=== PATIENT | female | born 1975 | race Caucasian/White ===

== ENCOUNTER 2017-05-14 17:30 | Outpatient (RCR) | payer OTHER, SELFPAY | END 2017-05-16 23:59 | LOC: NS 17:30 | PROVIDERS: Family Provider Internal Medicine; PCP Internal Medicine; Visit Provider Internal Medicine | DX: E66.9 Obesity, unspecified (principal); Z68.37 Body mass index [BMI] 37.0-37.9, adult; Z71.3 Dietary counseling and surveillance | CPT/HCPCS: 97803 ==

== ENCOUNTER 2017-05-28 16:59 | Outpatient (RCR) | payer OTHER, SELFPAY ==
[2017-03-28 16:08] VITALS: BMI 26.2
== END 2017-06-13 23:59 ==
LOC: NS 16:59
PROVIDERS: Family Provider Internal Medicine; PCP Internal Medicine; Visit Provider Internal Medicine
DX: E66.9 Obesity, unspecified (principal); Z68.37 Body mass index [BMI] 37.0-37.9, adult; Z71.3 Dietary counseling and surveillance
CPT/HCPCS: 97803

== ENCOUNTER 2017-07-09 17:00 | Outpatient (RCR) | payer OTHER, SELFPAY | END 2017-07-09 17:01 | LOC: NS 17:00 | PROVIDERS: Family Provider Internal Medicine; PCP Internal Medicine; Visit Provider Internal Medicine | DX: E66.9 Obesity, unspecified (principal); Z68.37 Body mass index [BMI] 37.0-37.9, adult; Z71.3 Dietary counseling and surveillance | CPT/HCPCS: 97803 ==

== ENCOUNTER → 2018-09-23 16:35 | Outpatient (CLI) | payer OTHER, SELFPAY ==
[2018-05-21 08:55] VITALS: BMI 36.7
[2018-09-27 11:49] LABS: HPV Reflexed? NOT INDICATED
== END ==
PROVIDERS: PCP Internal Medicine; Visit Provider Obstetrics & Gynecology
DX: Z12.4 Encounter for screening for malignant neoplasm of cervix (principal)
CPT/HCPCS: 87624; 88175; G0145

== ENCOUNTER → 2020-12-01 | Outpatient (CLI) | payer BC, SELFPAY ==
[2020-12-07 17:03] LABS: HPV Reflexed? NOT INDICATED
== END | disposition home or self-care (01) ==
LOC: WOBLAB 16:43 → LABSPEC 16:43
PROVIDERS: PCP Internal Medicine; Visit Provider Obstetrics & Gynecology
DX: Z12.4 Encounter for screening for malignant neoplasm of cervix (principal)
CPT/HCPCS: 88175; G0145

== ENCOUNTER → 2022-02-28 | Outpatient (CLI) | payer BC, SELFPAY ==
--- NOTE | 2022-02-28 17:00 | BI_ITS ---
MAMMOGRAPHY - BILATERAL SCREENING REASON FOR EXAM: Female, 46 years old. Routine annual screening examination. PERTINENT HISTORY: Grandmothers with breast cancer. TECHNIQUE: Digital bilateral breast deann (3D mammographic acquisition) in the CC and MLO projections. 2-D mediolateral oblique (MLO) and craniocaudad (CC) views of both breasts were obtained. CAD: Full Field Digital Mammography with Computer Added Detection was performed. COMPARISON: Comparison is made with prior examination dated 02/15/2021. FINDINGS: Breast Composition: The breasts are heterogeneously dense, which may obscure small masses. There are no dominant masses or suspicious calcifications. No other significant abnormalities are identified. There has been no significant change since the prior study. BI/SCRN MAMM (CAD)W/DEANN BILAT IMPRESSION: Stable bilateral screening mammogram. Yearly follow-up mammogram recommended. (A) ASSESSMENT CATEGORY: BIRADS Category 1: Negative. A letter regarding these results will be sent to the patient by the facility within 30 days. Approximately 10% of breast cancers are not detected by mammography. A normal mammogram should not delay biopsy of a clinically suspicious abnormality. [id number] Electronically Signed: Aditya Clinton MD at 8:36 EST ,
== END | disposition home or self-care (01) ==
LOC: OPBI 03-01 06:56
PROVIDERS: PCP Internal Medicine; Visit Provider Student in an Organized Health Care Education/Training Program
DX: Z12.31 Encounter for screening mammogram for malignant neoplasm of breast (principal); Z80.3 Family history of malignant neoplasm of breast
CPT/HCPCS: 77063; 77067

== ENCOUNTER 2022-07-26 08:49 | Day surgery (SDC) | payer BC, SELFPAY ==
[2022-07-26 09:17] VITALS: BP 126/84; PULSE 95; RESP 16; TEMP 36.6; O2SAT 100; BMI 36.2
[2022-07-26] MEDS: Lactated Ringers 1,000 ML 15 ML IV (09:26)
--- NOTE | 2022-07-26 09:42 | HP.PCM_ITS ---
[facility] - General General Date of Admission: 07/26/22 HPI Narrative NYDIA ALLISON, is a 46 F who presents for screening colonoscopy. Patient never had previous colonoscopy. Patient denies any family history of colon cancer. Patient has bowel moods daily denies any blood. Patient denies any chronic abdominal pain/nausea/vomiting. Patient states after she had COVID she did have reflux for about 3 months but changed her diet and that has resolved. [facility] Medical History (Updated 07/24/22 @ 11:20 by Heavenly Cueva) Acute maxillary sinusitis, unspecified Anxiety Asthma Asthma Depression with anxiety Easy bruising Gastric reflux History of echocardiogram Hypertension Hypertension Left elbow pain Left hand pain Left hand pain Non-smoker Obesity Seasonal allergies Ulnar neuropathy at elbow Wears contact lenses Wears glasses Home Medications atenolol 25 mg tablet 25 mg PO DAILY #90 tabs 08/09/21 [Rx Last Taken 07/26/22] losartan 100 mg tablet 100 mg PO QDAY #90 tabs 08/09/21 [Rx Last Taken 07/26/22] rmmgqekfypjd-Hg-pzap-minerals 18 mg-0.4 mg tablet 1 tab PO DAILY 04/18/22 [History Last Taken Unknown] norethindrone (contraceptive) 0.35 mg tablet (Tiffanie) 0.35 mg PO DAILY 06/14/22 [History Last Taken Unknown] citalopram 20 mg tablet See Rx Instructions .Route .COMPLEX #90 tabs 06/23/22 [Rx Last Taken 07/26/22] Allergy/AdvReac Type Severity Reaction Status Date / Time moxifloxacin [From Avelox] Allergy Intermediate Shortness Verified 07/24/22 11:06 of breath azithromycin [From Zithromax] Allergy Shortness Verified 07/24/22 11:06 of breath clarithromycin [From Biaxin] Allergy Shortness Verified 07/24/22 11:06 of breath erythromycin base Allergy Shortness Verified 07/24/22 11:06 [Erythromycin Base] of breath Family History (Updated 06/14/22 @ 08:12 by Kayla Urban) Mother Hypertension Menier's Father Hypertension Hyperlipidemia Asthma Myocardial infarction Colon polyp Grandfather Diabetes Myocardial infarction, Onset Age: 79 Grandmother Breast cancer Diabetes Grandfather Myocardial infarction of [place] in early 50s Grandmother Breast cancer Diabetes Surgical History none Social History Smoking Status: Never smoker alcohol intake: never substance use type: does not use what type of physical activity do you participate in: aerobics and weight training frequency: 3-4 times per week Past Medical/Surgical History Planned Operation Planned Operative Procedure/s: COLONOSCOPY Previous Hospitalizations/Surgeries HX Hospitalizations: No Any Problems With Anesthesia: No You/Your Family Experience Fever (Hyperthermia) With Anes: No Cholinesterase deficiency: No Cardiovascular Hx Heart Attack: No Hx Hypertension: Yes (TREATED WITH MEDS) Respiratory Hx Sleep Apnea: No Hx Respiratory Tract Infection/Cold (presently): No Do You Snore Loudly (louder than talking or can be heard): No Do You Often Feel Tired/ Fatigued/ Sleepy Dring Daytime?: No Has Anyone Observed You Stop Breathing During Sleep?: No Result (for STOP score): Negative Smoking Status: Never smoker Gastrointestinal Hx Gastroesophageal Reflux: Yes Controlled With Meds: Yes Special diet followed at home: No Neurological Does patient have nerve stimulator: No Reproduction : No Genitourinary Hx Renal Disease: No Endocrine Hx Diabetes: No Psycho/Social Hx Anxiety: Yes Hx Depression: Yes Miscellaneous Recent Exposure to Contagious Disease: No Allergies moxifloxacin [From Avelox] Allergy (Intermediate, Verified 07/24/22 11:06) Shortness of breath azithromycin [From Zithromax] Allergy (Verified 07/24/22 11:06) Shortness of breath clarithromycin [From Biaxin] Allergy (Verified 07/24/22 11:06) Shortness of breath erythromycin base [Erythromycin Base] Allergy (Verified 07/24/22 11:06) Shortness of breath Discharge Is Pt Admitted From a [facility], or a Care Home: No Who Could Help: LIZBETH After D/C, Where Do you Plan to Go: Return Home Vital Signs Vital Signs Vital Signs: 07/26/22 09:17 07/26/22 09:17 Temperature 97.9 F Temperature Source Temporal Pulse Rate 95 Respiratory Rate 16 Respiratory Pattern Normal Blood Pressure 126/84 H Blood Pressure Mean 98 Blood Pressure Source Monitor Blood Pressure Position Semi-Fowlers Blood Pressure Location Left Arm Pulse Ox 100 Oxygen Delivery Method Room Air Weight Weight: 191 lb 12.835 oz Body Mass Index (BMI) 36.2 Physical Exam Const alert, oriented x3 and no apparent distress HEENT normocephalic and head/scalp atraumatic Resp normal respiratory effort Cardio regular rate GI soft to palpation and non-tender; Negative for non-distended Palpation: Negative for guarding Extremity no clubbing, cyanosis or edema Neuro CN's II-XII intact bilaterally Psych mental status grossly normal Assessment & Plan Assessment/Plan (1) Encounter for screening for malignant neoplasm of colon: Surgery Risks - Colonoscopy Risks Include but are not Limited To: Risks include but are not limited to: Bleeding, perforation requiring further surgery, inability to complete colonoscopy requiring barium enema.
--- NOTE | 2022-07-26 10:00 | COLBX_PTH ---
PATIENT: NYDIA ALLISON LOC: EN U#:[id number] AGE/SX: 46/F ROOM: RE07/26/[address]: Dr. Meaghan Mcconnell MD : 1975 BED: DIS: 07/26/2022 SPEC #: [id number] RECD: 07/26/22 11:41 STATUS: NÉSTOR REDaljit #: [id number] DONNY: 07/26/22 10:[address]: Meaghan Mcconnell DEPT: SURGICAL PATHOLOGY RECD BY: Chava Cheung ENTERED: 07/26/22 12:51 SP TYPE: COLON BX OTHR DR: Dr. Maegan Hardin MD Tissues: Sigmoid colon biopsy Procedures: Surgery Specimen Level IV HEADER OPERATION: Colonoscopy ? open access (MAC) PRE-OP DIAGNOSIS: Screening TISSUE SUBMITTED: Rectosigmoid polyp MICROSCOPIC DIAGNOSIS Rectosigmoid polyp, biopsy: Tubular adenoma. AM:malcom 07/27/2022 MICROSCOPIC DESCRIPTION Slides are reviewed. GROSS DESCRIPTION Received in fixative is one container labeled with the patient's name and designated rectosigmoid polyp. The specimen consists of one irregular fragment of light conte soft tissue that measures 0.6 x 0.6 x 0.2 cm. The specimen is totally submitted in one cassette. / AM:malcom 07/26/2022 TC:5 CPT: 23463
[2022-07-26 10:38] VITALS: BP 111/57; BP 126/84; PULSE 72; RESP 18; TEMP 36.7; O2SAT 97
--- NOTE | 2022-07-26 10:39 | OP.COLON_ITS ---
Patient Name: Shari Valdes Procedure Date: 07/26/2022 10:05 AM Date of : 1975 Age: 46 Procedure: Colonoscopy Indications: Screening for colorectal malignant neoplasm Providers: Meaghan Mcconnell MD Referring MD: Meaghan Mcconnell MD Medicines: Monitored Anesthesia Care Patient Profile: This is a 46 year old female. Last Colonoscopy: none. The patient's first colonoscopy is today. Complications: No immediate complications. Procedure: Pre-Anesthesia Assessment: - Prior to the procedure, a History and Physical was performed, and patient medications and allergies were reviewed. The patient's tolerance of previous anesthesia was also reviewed. The risks and benefits of the procedure and the sedation options and risks were discussed with the patient. All questions were answered, and informed consent was obtained. Prior Anticoagulants: The patient has taken no previous anticoagulant or antiplatelet agents. ASA Grade Assessment: Per anesthesia. After reviewing the risks and benefits, the patient was deemed in satisfactory condition to undergo the procedure. After I obtained informed consent, the scope was passed under direct vision. Throughout the procedure, the patient's blood pressure, pulse, and oxygen saturations were monitored continuously. The colonoscope was introduced through the anus and advanced to the cecum, identified by the appendiceal orifice, ileocecal valve and palpation. The colonoscopy was performed without difficulty. The patient tolerated the procedure well. The quality of the bowel preparation was good. Scope In: 10:11:12 AM Scope Withdrawal Time 0 hours 9 minutes 20 seconds Scope Out: 10:29:35 AM Total Procedure Duration Time 0 hours 18 minutes 23 seconds Findings: The perianal and digital rectal examinations were normal. A 5 mm polyp was found in the recto-sigmoid colon. The polyp was semi-pedunculated. The polyp was removed with a hot snare. Resection and retrieval were complete. The exam was otherwise without abnormality on direct and retroflexion views. Impression: - One 5 mm polyp at the recto-sigmoid colon, removed with a hot snare. Resected and retrieved. - The examination was otherwise normal on direct and retroflexion views. Recommendation: - Discharge patient to home. - Resume previous diet. - Continue present medications. - Await pathology results. - Repeat colonoscopy in 5 years for surveillance based on pathology results. Procedure Code(s): --- Professional --- 14138, PT, Colonoscopy, flexible; with removal of tumor(s), polyp(s), or other lesion(s) by snare technique Diagnosis Code(s): --- Professional --- Z12.11, Encounter for screening for malignant neoplasm of colon D12.7, Benign neoplasm of rectosigmoid junction CPT copyright 2017 [employer]. All rights reserved. The codes documented in this report are preliminary and upon dedicated driver review may be revised to meet current compliance requirements. MD Meaghan Payan MD 07/26/2022 10:39:00 AM This report has been signed electronically. Number of Addenda: 0 Note Initiated On: 07/26/2022 10:05 AM
--- NOTE | 2022-07-26 10:40 | OP.CCLET_ITS ---
07/26/2022 Maegan Hardin MD [address] [place] [address] Re : Colonoscopy procedure for Shari Valdes Dear Dr. Hardin This procedure was performed on Tuesday, July 26, 2022. My impressions and recommendations are as follows: Impressions : - One 5 mm polyp at the recto-sigmoid colon, removed with a hot snare. Resected and retrieved. - The examination was otherwise normal on direct and retroflexion views. Recommendations : - Discharge patient to home. - Resume previous diet. - Continue present medications. - Await pathology results. - Repeat colonoscopy in 5 years for surveillance based on pathology results. My findings are described in the full procedure note, which is enclosed. If I can be of further assistance, please feel free to contact me at Doctor phone number(s): , Work: . Sincerely, MD Meaghan Payan MD 07/26/2022 10:39:00 AM This report has been signed electronically.
[2022-07-26 10:42] VITALS: BP 103/58; BP 126/84; PULSE 85; RESP 18; O2SAT 97
[2022-07-26 10:47] VITALS: BP 113/68; BP 126/84; PULSE 68; RESP 16; O2SAT 100
[2022-07-26 10:52] VITALS: BP 110/71; BP 126/84; PULSE 66; RESP 18; O2SAT 100
[2022-07-26 10:54] VITALS: BP 112/67; BP 126/84; PULSE 79; RESP 16; TEMP 36.8; O2SAT 100
== END 2022-07-26 11:31 | disposition home or self-care (01) ==
LOC: EN 08:51 → AC 08:52
PROVIDERS: PCP Internal Medicine; Referring Provider Surgery; Visit Provider Surgery
PROC: 0DJD8ZZ Inspection of Lower Intestinal Tract, Via Natural or Artificial Opening Endoscopic (ICD-10-PCS; CPT 45378; principal; 2022-07-26 09:55)
DX: Z12.11 Encounter for screening for malignant neoplasm of colon (principal); I10 Essential (primary) hypertension; J45.909 Unspecified asthma, uncomplicated; E66.9 Obesity, unspecified; Z79.899 Other long term (current) drug therapy; K21.9 Gastro-esophageal reflux disease without esophagitis; D12.7 Benign neoplasm of rectosigmoid junction
CPT/HCPCS: 45385; 88305; J7120; J2405

== ENCOUNTER → 2022-09-06 | Outpatient (CLI) | payer BC, SELFPAY ==
[2022-09-06 15:14] LABS: Absolute Lymphocyte Count 2.89 X10^3/uL (0.83-4.51); Absolute Neutrophil Count 8.5 X10^3/uL (2.0-7.7); Basophil# 0.05 X10^3/uL; Basophil% 0.4 % (0-1); Eosinophil# 0.36 X10^3/uL; Eosinophils% 2.9 % (0-5); Hematocrit 44.7 % (37-47); Hemoglobin 14.2 g/dL (12.0-15.0); Lymphocyte # 2.89 X10^3/ul (0.83-4.51); Lymphocyte % 23.5 % (19-41); Mean Corp Hgb Conc 31.8 g/dL (32-36); Mean Corpuscular Hgb 28.5 pg (27.0-32.0); Mean Corpuscular Volume 89.6 fL (81-99); Mean Platelet Vol. 10.3 fl (6.2-12.0); Monocyte% 4.1 % (0-10); NRBC Flagged by Analyzer 0 % (0-5); Neutrophil # 8.45 X10^3/uL (2.7-7.7); Neutrophil % 68.8 % (47-70); Platelet Count 329 K/mm3 (150-450); RBC Distribution Width SD 42.5 fl (35.1-43.9); Red Blood Count 4.99 M/mm3 (4.2-5.4); White Blood Count 12.3 K/mm3 (4.4-11.0)
[2022-09-06 15:38] LABS: ALB/GLOB Ratio 1.1 RATIO (0.9-2.4); AST(SGOT) 12 U/L (15-37); Alanine Aminotransfer ALT/SGPT 23 U/L (13-56); Albumin, Serum 3.8 g/dL (3.2-5.0); Alkaline Phosphatase 87 U/L (45-117); Anion Gap 6 (5-15); BUN 18 mg/dL (7-18); BUN/Creat Ratio 19.7 RATIO (10-20); Calcium,Total 8.5 mg/dL (8.5-10.1); Chloride 107 mmol/L (98-107); Cholesterol 166 mg/dL (200); Creatinine, Serum 0.91 mg/dL (0.55-1.02); EST Glomerular Filtration Rate 70 mL/min (>60); Est Glom Filt Rate - Afr Amer 85 mL/min (>60); Globulin 3.4 g/dL (2.2-4.2); Glucose 89 mg/dL (74-106); High Density Lipoprotein 48 mg/dL; Potassium 4.4 mmol/L (3.5-5.1); Protein, Total 7.2 g/dL (6.4-8.2); Sodium Level 138 mmol/L (136-145); Triglycerides 225 mg/dL; Very Low Density Lipoprotein 45 mg/dL (5-40)
== END | disposition home or self-care (01) ==
LOC: BIMLAB 14:00
PROVIDERS: PCP Internal Medicine; Referring Provider Internal Medicine; Visit Provider Internal Medicine
DX: Z00.00 Encounter for general adult medical examination without abnormal findings (principal)
CPT/HCPCS: 36415; 80053; 80061; 85025

== ENCOUNTER → 2023-01-22 | Outpatient (CLI) | payer BC, SELFPAY ==
[2023-01-25 14:09] LABS: HPV APTIMA, High Risk Negative (Negative)
== END | disposition home or self-care (01) ==
PROVIDERS: PCP Internal Medicine; Referring Provider Nurse Practitioner Women's Health; Visit Provider Nurse Practitioner Women's Health
DX: Z12.4 Encounter for screening for malignant neoplasm of cervix (principal)
CPT/HCPCS: 87624; 88175; G0145

== ENCOUNTER → 2023-02-06 | Outpatient (CLI) | payer BC, SELFPAY ==
--- NOTE | 2023-02-06 08:35 | US_ITS ---
STUDY: ULTRASOUND OF THE FEMALE PELVIS - LIMITED REASON FOR EXAM: Female, 47 years old irregular menses TECHNIQUE: Transabdominal and Transvaginal TECHNICAL QUALITY: Adequate. COMPARISON: None. FINDINGS: The uterus is anteverted and is in a midline position. The uterus measures 7.5 x 4.3 x 2.7 cm. Normal uterine cervix. The endometrium measures 2.3 mm in thickness, and is hyperechoic. There is no demonstrated endometrial mass. There is no demonstrated myometrial mass. There is fluid within the endocervical canal and a suggestion of a 1 cm polyp. The right ovary measures 2.1 x 1.0 x 0.8 cm. There is no right ovarian cyst or ovarian mass. There is no visualized right adnexal mass or complex lesion. There is normal arterial and normal venous vascularity. The left ovary measures 1.5 x 1.3 x 0.7 cm. There is no left ovarian cyst or ovarian mass. There is no visualized left adnexal mass or complex lesion. There is normal arterial and normal venous vascularity. Bladder distends normally There is no fluid in the cul-de-sac. US/Pelvic (Non ) IMPRESSION: Some fluid is noted within the endocervical canal with a likely polyp present measuring 1 cm. Fluid is likely hemorrhage. Normal endometrial thickness Sonographically normal ovaries Electronically Signed: Markie Hernandez MD at 14:53 EDT ,
[2023-02-06 09:48] LABS: Estradiol 56.6 pg/mL; Follicle Stimulating Hormone 23.6 mIU/mL; Thyroid Stim Hormone (TSH) 1.13 uIU/mL (0.358-3.74)
== END | disposition home or self-care (01) ==
PROVIDERS: PCP Internal Medicine; Referring Provider Nurse Practitioner Women's Health; Visit Provider Nurse Practitioner Women's Health
DX: N92.6 Irregular menstruation, unspecified (principal); R23.2 Flushing
CPT/HCPCS: 36415; 76830; 76856; 82670; 83001; 84443

== ENCOUNTER → 2023-03-01 | Outpatient (CLI) | payer BC, SELFPAY ==
--- NOTE | 2023-03-01 16:26 | BI_ITS ---
MAMMOGRAPHY - BILATERAL SCREENING REASON FOR EXAM: Female, 47 years old. Routine annual screening examination. PERTINENT HISTORY: Grandmothers with breast cancer. TECHNIQUE: Digital bilateral breast deann (3D mammographic acquisition) in the CC and MLO projections. 2-D mediolateral oblique (MLO) and craniocaudad (CC) views of both breasts were obtained. CAD: Full Field Digital Mammography with Computer Added Detection was performed. COMPARISON: Comparison is made with prior study March 30, 2022. FINDINGS: Breast Composition: The breasts are heterogeneously dense, which may obscure small masses. There are no dominant masses or suspicious calcifications. No other significant abnormalities are identified. There has been no significant change since the prior study. BI/SCRN MAMM (CAD)W/DEANN BILAT IMPRESSION: Stable bilateral screening mammogram. Yearly follow-up mammogram recommended. (A) ASSESSMENT CATEGORY: BIRADS Category 1: Negative. A letter regarding these results will be sent to the patient by the facility within 30 days. Approximately 10% of breast cancers are not detected by mammography. A normal mammogram should not delay biopsy of a clinically suspicious abnormality. [id number] Electronically Signed: Aditya Clinton MD at 8:43 EST ,
== END | disposition home or self-care (01) ==
LOC: OPBI 16:25
PROVIDERS: PCP Internal Medicine; Referring Provider Nurse Practitioner Women's Health; Visit Provider Nurse Practitioner Women's Health
DX: Z12.31 Encounter for screening mammogram for malignant neoplasm of breast (principal)
CPT/HCPCS: 77063; 77067

== ENCOUNTER 2023-05-08 12:08 | Day surgery (SDC) | payer BC, SELFPAY ==
[2023-04-24 13:16] LABS: Hematocrit 45.8 % (37-47); Hemoglobin 14.8 g/dL (12.0-15.0); Mean Corp Hgb Conc 32.3 g/dL (32-36); Mean Corpuscular Hgb 28.5 pg (27.0-32.0); Mean Corpuscular Volume 88.2 fL (81-99); Mean Platelet Vol. 9.5 fl (6.2-12.0); Platelet Count 367 K/mm3 (150-450); RBC Distribution Width CV 12.4 % (11.6-14.6); RBC Distribution Width SD 40.4 fl (35.1-43.9); Red Blood Count 5.19 M/mm3 (4.2-5.4); White Blood Count 11.9 K/mm3 (4.4-11.0)
[2023-05-08] VITALS (18 sets, daily range): BP systolic 88–152; BP diastolic 55–104; PULSE 59–72; RESP 12–18; TEMP 36.2–36.4; O2SAT 92–100; BMI 37.5
--- NOTE | 2023-05-08 12:26 | PCM.HP.BLA ---
History and Physical Date of Admission: 05/08/23 MR#: [id number] Acct: [id number] Name: NYDIA ALLISON Rep #: [id number] : 1975 Provider: Dr. Joan Gibbons DO Age/Sex: 47/F Location: [facility] [place] Status: Signed Intake Vital Signs 01/22/2310:15 03/20/2315:01 03/20/2315:01 Height 5 ft 1 in 5 ft 1 in 5 ft 1 in Weight: 205 lb 8 oz BMI 38.8 BP 141/84 H Intake Visit Reasons: surgical consultation Database Reporting Consultant Required: No Is patient in pain?: No Allergies moxifloxacin [From Avelox] Allergy (Intermediate, Verified 03/20/23 15:00) Shortness of breathazithromycin [From Zithromax] Allergy (Verified 03/20/23 15:00) Shortness of breathclarithromycin [From Biaxin] Allergy (Verified 03/20/23 15:00) Shortness of breatherythromycin base [Erythromycin Base] Allergy (Verified 03/20/23 15:00) Shortness of breath Medications gvehzftcqtir-Mb-qbrp-minerals 18 mg-0.4 mg tablet 1 tab PO DAILY 04/18/22 [History Confirmed 03/20/23] atenolol 25 mg tablet 25 mg PO DAILY #90 tabs 09/07/22 [Rx Confirmed 03/20/23] citalopram 20 mg tablet See Rx Instructions .Route .COMPLEX #90 tabs 09/07/22 [Rx Confirmed 03/20/23] losartan 100 mg tablet 100 mg PO QDAY #90 tabs 09/07/22 [Rx Confirmed 03/20/23] norethindrone 1 mg-ethinyl estradiol 10 mcg (24)-iron 10 mcg(2) tablet (Lo Loestrin Fe) 1 tab PO QDAY #140 tabs 02/06/23 [Rx Confirmed 03/20/23] Post menopausal: No Patient : No : No PFSH Medical History Abnormal CBC Acute maxillary sinusitis, unspecified Anxiety Asthma Asthma Depression with anxiety Easy bruising Gastric reflux History of echocardiogram Hypertension Hypertension Irregular menstrual bleeding Left elbow pain Left hand pain Non-smoker Obesity Seasonal allergies Ulnar neuropathy at elbow Wears contact lenses Wears glasses Surgical History none Family History Mother Hypertension Menier's Father Hypertension Hyperlipidemia Asthma Myocardial infarction Colon polypGrandfather Diabetes Myocardial infarction, Onset Age: 79Grandmother Breast cancer DiabetesGrandfather Myocardial infarction of [place] in early 50sGrandmother Breast cancer Diabetes Social History household members: family housing: house number of children: 0 current occupational status: employed current occupation: [employer] Smoking Status: Never smoker alcohol intake: never substance use type: does not use what type of physical activity do you participate in: aerobics and weight training frequency: 3-4 times per week seatbelt use: always do you feel safe at home: Yes additional social history: lives with sister Single [facility] surgical consultation Details: NYDIA ALLISON is a 47 year old who presents for pre-op evaluation. She was struggling with heavy irregular bleeding q 2 weeks and was seen initially by the [facility]. Nadine Masters's ordered an ultrasound and this showed a 1 cm polyp in the cervix. She is here today to discuss removal. History 0 Elective abortions Hx Para Spontaneous abortions Hx # Term Pregnancies Ectopic pregnancies Hx # Pregnancies Multiple births # of living children ROS Const ROS Unobtainable: All systems reviewed & are unremarkable except as noted in H Resp Resp: Reports system reviewed and no additional complaints, except as documented; Denies cough GI GI: Reports as per HPI Psych Psych: Reports system reviewed and no additional complaints, except as documented Exam Const General: cooperative, healthy appearing, comfortable and no acute distress Resp Effort & Inspection: normal respiratory effort Skin General: no rashes or lesions noted Psych Appearance: grossly normal Speech and Movement: speech and movement normal Coding Level of Care Code Off vis,est,level 3 Diagnoses Polyp of cervix N84.1 Assessment and Plan Assessment and Plan (1) Polyp of cervix: Status: Acute Plan: After discussing the patient's diagnosis and treatment plan options, patient wishes to proceed with surgical management. I have discussed with the patient the risks, benefits, and alternatives of the procedure which include but are not limited to risks of anesthesia, bleeding, infection, possible damage to bowel, bladder, or surrounding vasculature which could lead to additional surgery to evaluate any complications. Patient agrees to procedure and wishes to proceed. ACOG/uptodate references given for additional information regarding procedure. plan for hysteroscopy D&C polypectomy and insertion of mirena IUD.
--- OUTSIDE RECORDS SUMMARY | 2023-05-08 12:34 | XMS RPT_ITS | CCD ---
Author Name Unknown Address [address] [place] [address] Organization [facility] Care Team Providers Care Monitoring Analyst Name Role Phone Lashawn DUTTON, Kalpesh Marques Primary Care Provider Allergies Allergy Classification Reported Allergen(s) Allergy Type Date of Onset Reaction(s) Facility (4 sources) Azithromycin; Translations: [AZITHROMYCIN] Drug Allergy 04-20-2013 Itching [facility] Work Phone: (4 sources) Clarithromycin; Translations: [CLARITHROMYCIN] Drug Allergy 04-20-2013 Itching [facility] Work Phone: (4 sources) Erythromycin; Translations: [ERYTHROMYCIN] Drug Allergy 04-20-2013 Itching [facility] Work Phone: Medications Current Medications Medication Drug Class(es) Dates Sig (Normalized) Sig (Original) amoxicillin 875 mg oral tablet (2 sources) Penicillin-class Antibacterial Start: 09-29-2021 End: 10-06-2021 take 1 tablet by mouth twice daily amoxicillin (AMOXIL) 875 mg tablet Take 1 tablet by mouth twice daily for 7 days. 14 tablet 0 09/29/2021 10/06/2021 Active Completed/Discontinued Medications Medication Drug Class(es) Dates Sig (Normalized) Sig (Original) albuterol 0.83 mg/ml inhalation solution (3 sources) beta2-Adrenergic Agonist Start: 07-20-2013 take 2.5 mg by inhalation every four hours as needed albuterol 2.5 mg /3 mL (0.083 %) nebulizer solution Use 3 mL via nebulizer every 4 hours as needed for Wheezing/Shortnes s of Breath. Use over 5-15minutes. 1 Package 0 07/20/2013 Active Problems Problem Classification Problem Date Documented Da te Episodic/Chronic Asthma (1 source) Mild intermittent asthma; Translations: [Mild intermittent asthma with (acute) exacerbation] Chronic Immunizations and screening for infectious disease (1 source) Contact with or exposure to other viral diseases; Translations: [Close exposure to COVID-19 virus] Episodic Other lower respiratory disease (1 source) Cough; Translations: [Cough] Episodic Otitis media and related conditions (1 source) Acute suppurative otitis media without spontaneous rupture of ear drum; Translations: [Acute suppurative otitis media without spontaneous rupture of ear drum, right ear] Episodic Results Test Name Value Interpretation Reference Range Facil ity Vital Signs Date Time Vital Sign Value Performing Clinician Tanya marcano 10-05-2022 19:37-0400 Body temperature 98.4 [degF] Josafat Davis [employer].FACETOR Work Phone: [facility] 10-05-2022 19:37-0400 Body weight 87.45 kg Josafat Davis [employer].FACETOR Work Phone: [facility] 10-05-2022 19:37-0400 Diastolic blood pressure 84 mm[Hg] Josafat Davis [employer]ER.FACETOR Work Phone: [facility] 10-05-2022 19:37-0400 Heart rate 79 /min Josafat Davis [employer].FACETOR Work Phone: [facility] 10-05-2022 19:37-0400 Respiratory rate 18 /min Josafat Davis [employer].FACETOR Work Phone: [facility] 10-05-2022 19:37-0400 SaO2% (BldA) [Mass fraction] 98 % Josafat Davis [employer]ER.FACETOR Work Phone: [facility] 10-05-2022 19:37-0400 Systolic blood pressure 136 mm[Hg] Josafat Davis [employer]INEER.FACETOR Work Phone: [facility] 09-29-2021 18:24-0400 Body temperature 99.3 [degF] Lesli Hicks APRN.FACETOR Work Phone: [facility] 09-29-2021 18:24-0400 Body weight 97.07 kg Lesli Hicks APRN.FACETOR Work Phone: [facility] 09-29-2021 18:24-0400 Diastolic blood pressure 80 mm[Hg] Lesli Hicks APRN.FACETOR Work Phone: [facility] 09-29-2021 18:24-0400 Heart rate 102 /min Lesli Hicks APRN.FACETOR Work Phone: [facility] 09-29-2021 18:24-0400 Respiratory rate 20 /min Lesli Hicks APRN.FACETOR Work Phone: [facility] 09-29-2021 18:24-0400 SaO2% (BldA) [Mass fraction] 98 % Lesli Hicks APRN.FACETOR Work Phone: [facility] 09-29-2021 18:24-0400 Systolic blood pressure 150 mm[Hg] Lesli Hicks APRN.FACETOR Work Phone: [facility] Encounters Encounter Date Encounter Type Care Provider Facility Start: 10-05-2022 End: 10-05-2022 ambulatory KALPESH ROLAND Facility:[facility] Start: 10-05-2022 End: 10-05-2022 Office outpatient visit 25 minutes Josafat Davis APRN.FACETOR Work Phone: [facility] Plan of Treatment Date Care Activity Detail Author Start: 04-16-2022 DEPRESSION ASSESSMENT DEPRESSION ASSESSMENT [facility] Start: 09-29-2021 End: 10-13-2021 Influenza virus A and B RNA and SARS-CoV-2 (COVID-19) N gene panel - Respiratory specimen by DAWSON with probe detection COVID WITH FLUA+B, ROUTINE Microbiology Routine Close exposure to COVID-19 virus Expected: 09/29/2021, Expires: 10/13/2021 [facility] Work Phone: Payers Date Payer Category Payer Unknown [employer] PPO [id number] 2020-Present [phone] [address] [place] [address] PPO [id number] 2020 Unknown [employer]EL [employer] PPO [id number] 2020-Present [phone] [address] [place] [address] PPO [id number] 2020 Unknown [id number] Social History Date Type Detail Facility Start: 04-20-2013 End: 10-05-2022 Tobacco smoking status NHIS Never smoked tobacco [facility] Work Phone: Start: 04-20-2013 End: 10-05-2022 Tobacco use and exposure Smokeless tobacco non-user [facility] Work Phone: Start: 09-29-2021 End: 10-05-2022 Alcohol intake Lifetime non-drinker (finding) [facility] Start: 09-29-2021 History SDOH Alcohol Frequency 1 [facility] Start: 1975 Sex Assigned At Not on file C [facility] Start: 09-19-2021 End: 09-29-2021 Exposure to SARS-CoV-2 (event) Not sure [facility] Work Phone: Progress note 10-05-2022 Note Date & Type Note Facility 10-05-2022 Note HNO ID: [id number] Author: Josafat Davis APRN.FACETOR Service: ? Author Type: Nurse Practitioner Type: Progress Notes Filed: 10/05/2022 7:55 PM Note Text: Subjective HPI Nontoxic-appearing female presents urgent care chief complaint cough chest congestion. Duration of symptoms 3 weeks. Associated symptoms listed above. Patient states initially she did have sore throat headache runny nose. Those symptoms have since improved. Sick contacts was on a cruise around individuals similar signs symptoms. Presents today for persistent cough. Has been using rescue inhaler more frequently. This has been helping helping. Has been using cough suppressants this has not been helpful. Denies any pain currently. History of asthma. Denies chance of . Denies any fever productive cough chest pain shortness of breath pleuritic pain hemoptysis nausea vomiting abdominal pain or change in bowel or bladder habits. Past medical history prescription medication use allergies reviewed. .Patient presents with: Cough: Cough and congestion x 3 weeks PAST MEDICAL HISTORY Diagnosis Date Asthma Environmental allergies HTN (hypertension) History reviewed. No pertinent surgical history. ALLERGIES Biaxin [Clarithromycin], Erythromycin, and Zithromax [Azithromycin] MEDICATIONS atenolol (TENORMIN) 25 mg tablet Take 25 mg by mouth once daily. losartan potassium (LOSARTAN ORAL) Take by mouth. Norethindrone Acet-Ethinyl Est 1-20 mg-mcg per tablet Take 1 tablet by mouth once daily. amLODIPine (NORVASC) 5 mg tablet Take 5 mg by mouth once daily. citalopram hydrobromide (CELEXA) 10 mg tablet Take 10 mg by mouth once daily. albuterol 2.5 mg /3 mL (0.083 %) nebulizer solution Use 3 mL via nebulizer every 4 hours as needed for Wheezing/Shortness of Breath. Use over 5-15minutes. fluticasone (FLONASE) 50 mcg/actuation nasal spray Use 2 Sprays in each nostril once daily. Rinse mouth after use. (Patient not taking: Reported on 10/05/2022) hydrochlorothiazide (HYDRODIURIL, ESIDRIX) 25 mg tablet Take 25 mg by mouth once daily. (Patient not taking: Reported on 06/04/2021 ) promethazine (PHENERGAN) 25 mg tablet Take 1 tablet by mouth every 6 hours as needed for Nausea/Vomiting. codeine-guaiFENesin (ROBITUSSIN AC) 10-100 mg/5 mL syrup Take 5-10 mL by mouth four times daily as needed for Cough. May cause drowsiness. cloNIDine HCl (CATAPRES) 0.2 mg tablet Take 0.2 mg by mouth twice daily. codeine-guaiFENesin (ROBITUSSIN AC) 10-100 mg/5 mL syrup Take 5-10 mL by mouth four times daily as needed for Cough. May cause drowsiness. benzonatate (TESSALON PERLES) 100 mg capsule Take 1 capsule by mouth three times daily as needed for Cough. MONTELUKAST SODIUM (SINGULAIR ORAL) Take by mouth. (Patient not taking: Reported on 06/04/2021 ) FLUTICASONE PROPIONATE (FLONASE NASAL) Use in the nose. History reviewed. No pertinent family history. Social History Tobacco Use Smoking status: Never Smokeless tobacco: Never Substance Use Topics Alcohol use: Never Drug use: Never BP 136/84 Pulse 79 Temp 36.9 ?C (98.4 ?F) (Tympanic) Resp 18 Wt 87.5 kg (192 lb 12.8 oz) LMP 02/18/2013 SpO2 98% Review of Systems Constitutional: Negative for chills, fever and malaise/fatigue. HENT: Negative for congestion, ear discharge, ear pain, sinus pain and sore throat. Eyes: Negative for blurred vision, pain, discharge and redness. Respiratory: Positive for cough and wheezing. Negative for hemoptysis, sputum production, shortness of breath and stridor. Cardiovascular: Negative for chest pain. Gastrointestinal: Negative for abdominal pain, diarrhea, nausea and vomiting. Musculoskeletal: Negative for myalgias. Skin: Negative for itching and rash. Neurological: Negative for dizziness and headaches. Objective Physical Exam Constitutional: General: She is not in acute distress. Appearance: She is not diaphoretic. HENT: Head: Normocephalic. Nose: Nose normal. Mouth/Throat: Mouth: Mucous membranes are moist. Pharynx: Oropharynx is clear. No oropharyngeal exudate or posterior oropharyngeal erythema. Eyes: Conjunctiva/sclera: Conjunctivae normal. Pupils: Pupils are equal, round, and reactive to light. Cardiovascular: Rate and Rhythm: Normal rate and regular rhythm. Heart sounds: Normal heart sounds. Pulmonary: Effort: Pulmonary effort is normal. No tachypnea, accessory muscle usage or respiratory distress. Breath sounds: No stridor. Wheezing present. No rhonchi or rales. Abdominal: Palpations: Abdomen is soft. Tenderness: There is no abdominal tenderness. There is no guarding or rebound. Musculoskeletal: Cervical back: Normal range of motion and neck supple. No rigidity or tenderness. Lymphadenopathy: Cervical: No cervical adenopathy. Skin: General: Skin is warm and dry. Neurological: Mental Status: She is alert and oriented to person, place, and time. ASSESSMENT/ (more content not included)... [facility] History of Present illness Narrative 10-05-2022 Josafat MAGGIE Davis.FACETOR - 10/05/2022 7:42 PM EDT Note Date & Type Note Facility 10-05-2022 History of Presen t illness Narrative Subjective HPI Nontoxic-appearing female presents urgent care chief complaint cough chest congestion. Duration of symptoms 3 weeks. Associated symptoms listed above. Patient states initially she did have sore throat headache runny nose. Those symptoms have since improved. Sick contacts was on a cruise around individuals similar signs symptoms. Presents today for persistent cough. Has been using rescue inhaler more frequently. This has been helping helping. Has been using cough suppressants this has not been helpful. Denies any pain currently. History of asthma. Denies chance of . Denies any fever productive cough chest pain shortness of breath pleuritic pain hemoptysis nausea vomiting abdominal pain or change in bowel or bladder habits. Past medical history prescription medication use allergies reviewed. .Patient presents with: Cough: Cough and congestion x 3 weeks PAST MEDICAL HISTORY Diagnosis Date Asthma Environmental allergies HTN (hypertension) History reviewed. No pertinent surgical history. ALLERGIES Biaxin [Clarithromycin], Erythromycin, and Zithromax [Azithromycin] MEDICATIONS atenolol (TENORMIN) 25 mg tablet Take 25 mg by mouth once daily. losartan potassium (LOSARTAN ORAL) Take by mouth. Norethindrone Acet-Ethinyl Est 1-20 mg-mcg per tablet Take 1 tablet by mouth once daily. amLODIPine (NORVASC) 5 mg tablet Take 5 mg by mouth once daily. citalopram hydrobromide (CELEXA) 10 mg tablet Take 10 mg by mouth once daily. albuterol 2.5 mg /3 mL (0.083 %) nebulizer solution Use 3 mL via nebulizer every 4 hours as needed for Wheezing/Shortness of Breath. Use over 5-15minutes. fluticasone (FLONASE) 50 mcg/actuation nasal spray Use 2 Sprays in each nostril once daily. Rinse mouth after use. (Patient not taking: Reported on 10/05/2022) hydrochlorothiazide (HYDRODIURIL, ESIDRIX) 25 mg tablet Take 25 mg by mouth once daily. (Patient not taking: Reported on 06/04/2021 ) promethazine (PHENERGAN) 25 mg tablet Take 1 tablet by mouth every 6 hours as needed for Nausea/Vomiting. codeine-guaiFENesin (ROBITUSSIN AC) 10-100 mg/5 mL syrup Take 5-10 mL by mouth four times daily as needed for Cough. May cause drowsiness. cloNIDine HCl (CATAPRES) 0.2 mg tablet Take 0.2 mg by mouth twice daily. codeine-guaiFENesin (ROBITUSSIN AC) 10-100 mg/5 mL syrup Take 5-10 mL by mouth four times daily as needed for Cough. May cause drowsiness. benzonatate (TESSALON PERLES) 100 mg capsule Take 1 capsule by mouth three times daily as needed for Cough. MONTELUKAST SODIUM (SINGULAIR ORAL) Take by mouth. (Patient not taking: Reported on 06/04/2021 ) FLUTICASONE PROPIONATE (FLONASE NASAL) Use in the nose. History reviewed. No pertinent family history. Social History Tobacco Use Smoking status: Never Smokeless tobacco: Never Substance Use Topics Alcohol use: Never Drug use: Never BP 136/84 Pulse 79 Temp 36.9 C (98.4 F) (Tympanic) Resp 18 Wt 87.5 kg (192 lb 12.8 oz) LMP 02/18/2013 SpO2 98% Review of Systems Constitutional: Negative for chills, fever and malaise/fatigue. HENT: Negative for congestion, ear discharge, ear pain, sinus pain and sore throat. Eyes: Negative for blurred vision, pain, discharge and redness. Respiratory: Positive for cough and wheezing. Negative for hemoptysis, sputum production, shortness of breath and stridor. Cardiovascular: Negative for chest pain. Gastrointestinal: Negative for abdominal pain, diarrhea, nausea and vomiting. Musculoskeletal: Negative for myalgias. Skin: Negative for itching and rash. Neurological: Negative for dizziness and headaches. Objective Physical Exam Constitutional: General: She is not in acute distress. Appearance: She is not diaphoretic. HENT: Head: Normocephalic. Nose: Nose normal. Mouth/Throat: Mouth: Mucous membranes are moist. Pharynx: Oropharynx is clear. No oropharyngeal exudate or posterior oropharyngeal erythema. Eyes: Conjunctiva/sclera: Conjunctivae normal. Pupils: Pupils are equal, round, and reactive to light. Cardiovascular: Rate and Rhythm: Normal rate and regular rhythm. Heart sounds: Normal heart sounds. Pulmonary: Effort: Pulmonary effort is normal. No tachypnea, accessory muscle usage or respiratory distress. Breath sounds: No stridor. Wheezing present. No rhonchi or rales. Abdominal: Palpations: Abdomen is soft. Tenderness: There is no abdominal tenderness. There is no guarding or rebound. Musculoskeletal: Cervical back: Normal range of motion and neck supple. No rigidity or tenderness. Lymphadenopathy: Cervical: No cervical adenopathy. Skin: General: Skin is warm and dry. Neurological: Mental Status: She is alert and oriented to person, place, and time. ASSESSMENT/PLAN: 1. Mild intermittent asthma with acute exacerbation - ICD9: 493.92, ICD10: J45.21 Patient diagnosed with mild intermittent asthma exacerbation. Placed on prednisone and doxycycline. Chest x-ray offered. Declined x-ray at this time. Follow-up with PCP 3 to 5 days symptoms are not improving. Red flags appropriate location discussed. Patient was educated on supportive therapies. Patient will follow up with primary care provider as needed. Patient was instructed to immediately proceed to emergency room for any new, worsening, or symptoms lasting longer than anticipated. The patient's clinical presentation is otherwise unremarkable at this time. Based on exam and clinical finding, the patient is stable for discharge. Plan of care was discussed with patient. Patient verbalizes understanding and agrees to plan of care. This note was generated using [employer] software. It may contain errors in wording, punctuation, or spelling. Josafat Davis APRN.JAVI documented in this encounter [facility] Note 09-30-2021 Telephone Encounter - Migdalia Rust APRN.CNP - 09/30/2021 8:57 AM EDT Note Date & Type Note Facility 09-30-2021 Miscellaneous Notes This CIRCUIT WALKER called patient at [phone] and identified with name and . Your covid test is positive. Follow the CDC guidelines for isolation: 1. Everyone, regardless of vaccination status, should stay home for 5 days. 2. If you have no symptoms or your symptoms are resolving after 5 days, you can leave your house. 3. Continue to wear a mask around others for 5 additional days. If you have a fever, continue to stay home until your fever resolves, even if it is longer than 5 days. Please monitor your symptoms, and for any worrisome symptoms. Continue comfort measures for symptoms as you would for a cold. Any worsening symptoms follow up with PCP or ER. All questions answered. Migdalia Rust CNP documented in this encounter [facility] Note 09-29-2021 Addendum Note - Rhett Jimenez PA-C - 09/29/2021 6:51 PM EDT Note Date & Type Note Facility 09-29-2021 Miscellaneous Notes Addended by: RHETT JIMENEZ on: 09/29/2021 06:51 PM Modules accepted: Orders documented in this encounter [facility] History of Present illness Narrative 09-29-2021 Lesli Hicks APRN.JAVI - 09/29/2021 6:42 PM EDT Note Date & Type Note Facility 09-29-2021 History of Presen t illness Narrative CC: Patient presents with: Cough: x4 days, (RT) ear pain rated 7, recent travel, nasal congestion HPI: Shari Valdes is a 45 year old female who presents to the office with complaint of head congestion, cough, nonproductive, sinus symptoms and ear symptoms for a few days. Symptoms are worsening Associated symptoms includes ear pain. Denies fever, nausea, vomiting and diarrhea. Treatments tried include nothing so far. with no relief of symptoms. Sick contacts: unknown. History of asthma, frequent episodes of bronchitis, chronic bronchitis, bronchiectasis or COPD: No Smoker: No Seasonal/environmental allergies: No The ROS is otherwise negative. The patient's pmh, medications, allergies, and past visits are reviewed. PHYSICAL EXAM: BP 150/80 Pulse 102 Temp 37.4 C (99.3 F) Resp 20 Wt 97.1 kg (214 lb) LMP 02/18/2013 SpO2 98% General appearance: alert, cooperative, pleasant, in no acute distress Head: Normocephalic Eyes: EOM's intact, conjunctiva pink and moist, no icterus, sclera white, non-injected Ears: Right ear: External ear/canal- Normal, TM - erythematous, bulging. Left ear: External ear/canal- Normal, TM - erythematous, bulging Oropharynx:moist without lesions, No erythema, exudates or tonsillar hypertrophy. Heart: Negative. RRR without obvious murmur, gallop, or rubs. No ectopy. Lungs: clear to auscultation, without rales or wheeze, good air exchange PAST MEDICAL HISTORY Diagnosis Date Asthma Environmental allergies HTN (hypertension) No past surgical history on file. ALLERGIES Biaxin [Clarithromycin], Erythromycin, and Zithromax [Azithromycin] MEDICATIONS atenolol (TENORMIN) 25 mg tablet Take 25 mg by mouth once daily. fluticasone (FLONASE) 50 mcg/actuation nasal spray Use 2 Sprays in each nostril once daily. Rinse mouth after use. Norethindrone Acet-Ethinyl Est (LOESTRIN 05/05, ,) 1-20 mg-mcg per tablet Take 1 tablet by mouth once daily. citalopram hydrobromide (CELEXA) 10 mg tablet Take 10 mg by mouth once daily. albuterol 2.5 mg /3 mL (0.083 %) nebulizer solution Use 3 mL via nebulizer every 4 hours as needed for Wheezing/Shortness of Breath. Use over 5-15minutes. amoxicillin (AMOXIL) 875 mg tablet Take 1 tablet by mouth twice daily for 7 days. losartan potassium (LOSARTAN ORAL) Take by mouth. amLODIPine (NORVASC) 5 mg tablet Take 5 mg by mouth once daily. hydrochlorothiazide (HYDRODIURIL, ESIDRIX) 25 mg tablet Take 25 mg by mouth once daily. promethazine (PHENERGAN) 25 mg tablet Take 1 tablet by mouth every 6 hours as needed for Nausea/Vomiting. codeine-guaiFENesin (ROBITUSSIN AC) 10-100 mg/5 mL syrup Take 5-10 mL by mouth four times daily as needed for Cough. May cause drowsiness. cloNIDine HCl (CATAPRES) 0.2 mg tablet Take 0.2 mg by mouth twice daily. codeine-guaiFENesin (ROBITUSSIN AC) 10-100 mg/5 mL syrup Take 5-10 mL by mouth four times daily as needed for Cough. May cause drowsiness. benzonatate (TESSALON PERLES) 100 mg capsule Take 1 capsule by mouth three times daily as needed for Cough. MONTELUKAST SODIUM (SINGULAIR ORAL) Take by mouth. FLUTICASONE PROPIONATE (FLONASE NASAL) Use in the nose. No family history on file. Social History Tobacco Use Smoking status: Never Smoker Smokeless tobacco: Never Used Substance Use Topics Alcohol use: Never Drug use: Never ASSESSMENT/PLAN: 1. Close exposure to COVID-19 virus - ICD9: V01.79, ICD10: Z20.822 (primary diagnosis) 2. Cough - ICD9: 786.2, ICD10: R05.9 3. Non-recurrent acute suppurative otitis media of right ear without spontaneous rupture of tympanic membrane - ICD9: 382.00, ICD10: H66.001 Prednisone 40mg daily for 5 days. Amoxicillin bid for 7 days. Prescription instructions reviewed with patient as applicable. Potential red flag symptoms discussed with the patient. Reviewed appropriate action plan to take if red flag symptoms occur. Patient agreeable to treatment plan. Lesli Hicks APRN.FACETOR documented in this encounter [facility] Evaluation note Note Date & Type Note Facility documented in this encounter [facility] Evaluation note Note Date & Type Note Facility documented in this encounter [facility] Summary Purpose Family History No Family History Records FoundNo Family History Records Found Advance Directives No Advanced Directives Records FoundNo Advanced Directives Records Found Health Concerns Infection Onset Date Last Indicated Resolved Time COVID-19 Rule-Out 09/29/2021 09/29/2021 Infection Onset Date Last Indicated Resolved Time COVID-19 Rule-Out 09/29/2021 09/29/2021 09/30/2021 7:36 AM EDT COVID-19 Confirmed 09/29/2021 09/29/2021 Additional Source Comments INFORMATION SOURCE (unrecogn ized section and content) DATE CREATED AUTHOR AUTHOR'S ORGANIZ ATION 10/06/2022 [facility] Source Comments (unrecognize d section and content) In the event this informatio n is protected by the Federal Confidentiality of Alcohol and Drug Abuse Patient Records regulations: The Federal rules restrict any use of the information to criminally investigate or prosecute any alcohol or drug abuse patient.[facility] the event this information is protected by the Federal Confidentiality of Alcohol and Drug Abuse Patient Records regulations: The Federal rules restrict any use of the information to criminally investigate or prosecute any alcohol or drug abuse patient.[facility]In the event this information is protected by the Federal Confidentiality of Alcohol and Drug Abuse Patient Records regulations: The Federal rules restrict any use of the information to criminally investigate or prosecute any alcohol or drug abuse patient.[facility] Reason for Visit (unrecogniz ed section and content) Reason Comments Results covid + Reason Comments Cough Cough and congestion x 3 weeks Care Teams (unrecognized sec tion and content) Monitoring Analyst Relationship Specialty Start Date End Date Kalpesh Roland MD PCP - General Internal Medicine 01/02/18 Monitoring Analyst Relationship Specialty Start Date End Date Kalpesh Roland MD PCP - General Internal Medicine 01/02/18 FOR RECORDS PERTAINING TO PATIENTS WHO ARE OR HAVE BEEN ENROLLED IN A CHEMICAL DEPENDENCY/SUBSTANCEABUSE PROGRAM, SOME INFORMATION MAY BE OMITTED. This clinical summary was aggregated from multiple sources. Caution should be exercised in using it in the provision of clinical care. This summary normalizes information from multiple sources, and as a consequence, information in this document may materially change the coding, format and clinical context of patient data. In addition, data may be omitted in some cases. CLINICAL DECISIONS SHOULD BE BASED ON THE PRIMARY CLINICAL RECORDS. [facility]. provides no warranty or guarantee of the accuracy or completeness of information in this document.
[2023-05-08] MEDS: Lactated Ringers 1,000 ML 15 ML IV ×2 (12:45→14:20)
--- NOTE | 2023-05-08 12:52 | NURSING ---
PT REFUSED TEST, DR. JUDGE AND DR. SUE MADE AWARE, OKAY TO PROCEED.
--- NOTE | 2023-05-08 13:32 | OP.PCM_ITS ---
Problems Associated Problem List Diagnoses (1) Polyp of cervix: (2) Irregular menstrual bleeding: Multi Select Codes Urinary/Genital Urinary/Genital CPT Codes: 03629 Hysteroscopy,EMC, Polypectomy
--- NOTE | 2023-05-08 13:32 | PCM.OPRPT ---
Problems Associated Problem List Diagnoses (1) Polyp of cervix: (2) Irregular menstrual bleeding: Report of Operation Date of Procedure: 05/08/23 Pre-Operative Diagnosis: abnormal uterine bleeding, ultrasound finding suggestive of endocervical polyp Post-Operative Diagnosis: abnormal uterine bleeding, ultrasound finding suggestive of endocervical polyp Surgery/Procedure Performed:: hysteroscopy dilation and curettage Description of Surgical Findings:: no signs of endocervical polyp on hysteroscopy. normal proliferative appearing endometrium Surgeon: Joan Gibbons assistant production editor: None Type of Anesthesia: MAC/Supplemental/Local Specimen's removed: endometrial curettings Estimated Blood Loss (mL): 5cc Description of Procedure: Patient was prepped and draped in a normal sterile fashion under MAC anesthesia. A weighted speculum was placed in the vagina and the anterior lip of the cervix was grasped with a single-tooth tenaculum. A paracervical block was placed with 1% lidocaine. Cervix was progressively dilated to allow passage of a 5 mm hysteroscope. The uterus sounded to 8 cm. The lining was fully visualized and noted to have a proliferative appearing lining. the hysteroscope was withdrawn from the fundus and full visualization was made of the cervix. there were no signs of a polyp present. There was some mucous present. Curettage was performed and endometrial curettings were sent to pathology. All instruments were removed from the vagina and excellent hemostasis was noted. Patient was awoken and taken to recovery in stable condition. Grafts/Implants Used: none Procedure Start Time: 13:16 Procedure Stop Time: 13:32 Complications none Admit VTE Documentation VTE Present on Admission: Yes VTE Mechan Device Prophylaxis: SCD's VTE Pharm Prophylaxis ordered?: No Multi Select Codes Urinary/Genital Urinary/Genital CPT Codes: 77408 Hysteroscopy,EMC, Polypectomy
[2023-05-08] MEDS: Lidocaine 1% (20 ml mdv) 20 ML Vial (13:33)
--- NOTE | 2023-05-08 13:38 | DCINST_ITS ---
Discharge Instructions Diet Discharge Diet: No restrictions Activity Discharge Activity: Return to Normal Activity, May Shower and May Take a Tub Bath (after 1 week) May resume sexual activity in: 1-2 weeks Weight Bearing Status: Weight bearing as tolerated Lifting Restrictions: none Dressing / Incision Call your doctor if you observe: Fever of 101 or Higher, Using more than 1 pad per hour, Shortness of breath and Uncontrolled pain Follow Up Care Please Follow Up With: Joan Gibbons DO When: Call [phone] to schedule appointment. Test Results: Test results from this visit will be discussed in further detail at your follow- up appointment, if applicable. Discharge Plan Admission Primary Reason for Your Visit: hysteroscopy dilation and curettage Attending Provider: Joan Gibbons Primary Care Provider: Maegan Hardin Discharge Orders/Prescriptions Prescriptions: Continued tcyhoqszahuv-Wa-zmvc-minerals 18-0.4 mg tablet 1 tab PO DAILY C Complex 1,000 mg tablet extended release 1,000 mg PO DAILY atenolol 25 mg tablet 25 mg PO DAILY Qty: 90 3RF citalopram 20 mg tablet See Rx Instructions .ROUTE .COMPLEX Qty: 90 2RF Dose Instruction: TAKE 1 TABLET DAILY Rx Instructions: TAKE 1 TABLET DAILY losartan 100 mg tablet 100 mg PO QDAY Qty: 90 2RF Lo Loestrin Fe 1 mg-10 mcg (24)/10 mcg (2) tablet 1 tab PO QDAY Qty: 140 2RF Referrals / Follow Up: Maegan Hardin MD [Primary Care Provider] - Disposition Disposition (needs filled in before D/C Order can be placed): Home, Self Care
--- NOTE | 2023-05-08 13:45 | EMB_PTH ---
PATHOLOGY RESULTS PATIENT: NYDIA ALLISON LOC: [facility] [place] U#:[id number] AGE/SX: 47/F ROOM: RE05/08/[address]: Dr. Joan Gibbons DO : 1975 BED: DIS: 05/08/2023 SPEC #: [id number] RECD: 05/08/23 14:33 STATUS: NÉSTOR YASMINE #: [id number] DONNY: 05/08/23 13:[address]: Joan Gibbons DEPT: SURGICAL PATHOLOGY RECD BY: Kemi Knight ENTERED: 05/09/23 08:57 SP TYPE: ENDOM BX/C OTHR DR: Dr. Maegan Hardin MD Tissues: Endometrium, NOS Procedures: Surgery Specimen Level IV HEADER OPERATION: Hysteroscopy, dilation and curettage, cervical polypectomy PRE-OP DIAGNOSIS: Polyp of cervix TISSUE SUBMITTED: Endometrial curettings MICROSCOPIC DIAGNOSIS Endometrial curettings: Weakly proliferative endometrium and mucoid tissue. See comment. DAO:malcom 05/10/2023 COMMENT One of the fragments of endometrial tissue has a polypoid appearance and may represent fragment of benign endometrial polyp. MICROSCOPIC DESCRIPTION Slides are reviewed. GROSS DESCRIPTION Received in fixative is one container labeled with the patient's name and designated endometrial curettings. The specimen consists of multiple fragments of hemorrhagic mucoid tissue that in aggregate measure 2.5 x 1.5 x 0.2 cm. The specimen is totally submitted in one cassette. / DAO:malcom 05/09/2023 TC:5 CPT: 77115
== END 2023-05-08 15:14 | disposition home or self-care (01) ==
LOC: SDC 12:08 → AC 12:10
PROVIDERS: PCP Internal Medicine; Referring Provider Obstetrics & Gynecology; Visit Provider Obstetrics & Gynecology
PROC: 0UDB8ZZ Extraction of Endometrium, Via Natural or Artificial Opening Endoscopic (ICD-10-PCS; CPT 58558; principal; 2023-05-08 13:35)
DX: N93.9 Abnormal uterine and vaginal bleeding, unspecified (principal); N92.6 Irregular menstruation, unspecified; I10 Essential (primary) hypertension; Z68.38 Body mass index [BMI] 38.0-38.9, adult; E66.9 Obesity, unspecified; J45.909 Unspecified asthma, uncomplicated; Z79.899 Other long term (current) drug therapy; E78.5 Hyperlipidemia, unspecified
CPT/HCPCS: 58558; 36415; 85027; 86850; 86900; 86901; 88305; J7120; J2405

== ENCOUNTER → 2024-03-03 | Outpatient (CLI) | payer BC, SELFPAY | END | disposition home or self-care (01) | LOC: OPBI 15:12 | PROVIDERS: PCP Internal Medicine; Referring Provider Nurse Practitioner Women's Health; Visit Provider Nurse Practitioner Women's Health | DX: Z12.31 Encounter for screening mammogram for malignant neoplasm of breast (principal) | CPT/HCPCS: 77063; 77067 ==

== ENCOUNTER → 2025-03-05 | Outpatient (CLI) | payer BC, SELFPAY ==
--- NOTE | 2025-03-05 17:15 | BI_ITS ---
EXAM: SCRN MAMM (CAD)W/DEANN BILAT DATE: 03/05/2025 CLINICAL HISTORY: F, Age 49 y/o , SCREEN FOR BREAST CANCER TECHNIQUE: Procedure Code: [id number] Modality: MG Procedure: SCRN MAMM (CAD)W/DEANN BILAT COMPARISON: Prior exam(s) dated 03/03/2024, 03/01/2023, 02/28/2022. FINDINGS: TISSUE DENSITY: The breasts are heterogeneously dense, which may obscure small masses. The mammogram demonstrates that the patient has dense breasts. Supplemental screening with whole breast ultrasound or MRI may be considered for further evaluation. Bilateral Breast Mammographic Findings: No significant masses, calcifications or other abnormalities are identified. BI/SCRN MAMM (CAD)W/DEANN BILAT IMPRESSION: There is no mammographic evidence of malignancy. OVERALL FINAL ASSESSMENT BI-RADS 1: NEGATIVE. RECOMMENDATION: Routine annual follow-up in 1 Year Additional Recommendation none A letter with findings and recommendations will be mailed to the patient. Reading Location: [id number]
== END | disposition home or self-care (01) ==
LOC: OPBI 16:32
PROVIDERS: PCP Nurse Practitioner Family; Referring Provider Nurse Practitioner Women's Health; Visit Provider Nurse Practitioner Women's Health
DX: Z12.31 Encounter for screening mammogram for malignant neoplasm of breast (principal)
CPT/HCPCS: 77063; 77067

== ENCOUNTER → 2025-04-02 | Outpatient (CLI) | payer BC, SELFPAY ==
[2025-04-02 10:52] LABS: Hematocrit 44.2 % (37-47); Hemoglobin 14.1 g/dL (12.0-15.0); Immature Granulocytes Count 0.040 X10^3/uL (0.0-0.0); Mean Corp Hgb Conc 31.9 g/dL (32-36); Mean Corpuscular Volume 87.2 fL (81-99); Mean Platelet Vol. 9.3 fl (6.2-12.0); NRBC Flagged by Analyzer 0 % (0-5); Platelet Count 290 K/mm3 (150-450); RBC Distribution Width CV 13.2 % (11.6-14.6); RBC Distribution Width SD 41.8 fl (35.1-43.9); Red Blood Count 5.07 M/mm3 (4.2-5.4); White Blood Count 12.1 K/mm3 (4.4-11.0)
[2025-04-02 11:31] LABS: AST(SGOT) 17 U/L (<=31); Alanine Aminotransfer ALT/SGPT 20 U/L (<=34); Albumin, Serum 4.0 g/dL (3.5-5.0); Alkaline Phosphatase 87 U/L (35-104); Anion Gap 13 (5-15); BUN 13 mg/dL (4-19); BUN/Creat Ratio 14.1 RATIO (10-20); Calcium,Total 9.2 mg/dL (7.6-11.0); Carbon Dioxide 24.3 mmol/L (21.0-32.0); Chloride 101 mmol/L (98-108); Cholesterol 218 mg/dL (<=200); Globulin 2.8 g/dL (2.2-4.2); Glucose 94 mg/dL (70-99); Low Density Lipoprotein Calc. 120 mg/dL; Potassium 4.3 mmol/L (3.3-5.1); Triglycerides 268 mg/dL; Very Low Density Lipoprotein 54 mg/dL (5-40); cholesterol:hdl ratio screen 4.26
== END | disposition home or self-care (01) ==
LOC: MTLAB 08:32
PROVIDERS: PCP Nurse Practitioner Family
DX: Z13.1 Encounter for screening for diabetes mellitus (principal); Z13.220 Encounter for screening for lipoid disorders; E66.9 Obesity, unspecified; I10 Essential (primary) hypertension
CPT/HCPCS: 36415; 80053; 80061; 83036; 83525; 84439; 84443; 85025